=== PATIENT | female | born 1985 | race African-American/Black ===

== ENCOUNTER 2017-09-18 11:20 | Emergency (ER) | payer OTHER ==
[2017-09-18 11:31] VITALS: TEMP 98.2; BMI 28.0
--- NOTE | 2017-09-18 11:51 | PDOC ---
Attending Attestation - Resident Resident Name: Isabel Reddy - HPI HPI: 09/18/17 12:49 Pt presents to the ED complaining of a two day history of nausea, vomiting and r sided abdominal pain. Also complaining of profuse watery diarrhea. Denies fever or urinary complaints. No prior history of similar pain. - Physicial Exam PE: 09/18/17 12:51 Agree with resident exam. Resident is in no acute distress. Abdomen is mildly tender in the RUQ. No CVA tenderness. Abdomen is soft, flat and non distended. - Medical Decision Making 09/18/17 12:52 Pt presents to the ED complaining of nausea, vomiting and RUQ pain. Differential includes gallstones or cholecystitis, pancreatitis, gastroenteritis , gastritis, ectopic , renal stones. Will check labs and US, check test, give pain control and reassess.
--- NOTE | 2017-09-18 12:22 | PDOC ---
History of Present Illness - General Chief Complaint: Nausea/Vomiting Stated Complaint: NAUSEA/VOMITING Time Seen by Provider: 09/18/17 11:27 - History of Present Illness Initial Comments: 09/18/17 12:34 31 year old female with no PMH presents with 2 day h/o abdominal pain, diarrhea , and emesis. Diarrhea and emesis started yesterday morning around 5 a.m. Patient came into our ED for evaluation yesterday morning however she had an episode of loose stools prompting her to leave prior to registration. Estimates she is having 7-8 bowel movements daily. Pain started late yesterday afternoon and is cramping, intermittent, 10/10, with no identifiable triggering or relieving factors. Not tolerating PO intake- last meal 3 days previous. Last BM this morning prior to presentation. Patient currently on her menstrual cycle. Patient denies any fevers/chils, dysuria/hematuria. Patient denies chest pain, shortness of breath. Patient denies sick contacts or recent travel. Allergy: Latex Surgical: C/S Social: 4-5 cigarettes daily, 1-2 alcoholic drinks weekly, denies recreational drug use PMD: Dr. Aguilar Past History - Past Medical History Allergies/Adverse Reactions: Allergies Allergy/AdvReac Type Severity Reaction Status Date / Time latex Allergy Verified 09/18/17 11:31 COPD: No - Suicide/Smoking/Psychosocial Hx Smoking History: Never smoked Number of Cigarettes Smoked Daily: 5 Information on smoking cessation initiated: No Review of Systems - Review of Systems Constitutional: No: Chills, Fever Respiratory: No: Cough, Shortness of Breath Cardiac (ROS): No: Chest Pain, Lightheadedness, Palpitations, Syncope ABD/GI: Yes: Diarrhea, Nausea, Vomiting, Abdominal cramping. No: Constipated, Rectal Bleeding : No: Burning, Dysuria *Physical Exam - Vital Signs Last Vital Signs Temp Pulse Resp BP Pulse Ox 98.2 F 88 18 152/83 99 09/18/17 11:27 09/18/17 11:27 09/18/17 11:27 09/18/17 11:27 09/18/17 11:27 - Physical Exam General Appearance: Yes: Nourished, Appropriately Dressed Neck: positive: Trachea midline, Supple Respiratory/Chest: positive: Lungs Clear Cardiovascular: positive: S1, S2 Gastrointestinal/Abdominal: positive: Normal Bowel Sounds, Soft, Other ((+) Bill's sign, Epigastric and RUQ TPP). negative: Guarding, Rebound Musculoskeletal: negative: CVA Tenderness (R), CVA Tenderness (L) Integumentary: positive: Normal Color, Dry, Warm Neurologic: positive: Fully Oriented, Alert ED Treatment Course - LABORATORY CBC & Chemistry Diagram: 09/18/17 12:30 09/18/17 12:30 Medical Decision Making - Medical Decision Making 09/18/17 12:40 31 year old female with abdominal pain + vomiting, diarrhea. PE significant for (+) Bill's sign, epigastric TTP. Frontal diagnosis: cholecystitis, biliary colic, pancreatitis, nephrolithiasis, ectopic . Will obtain GB ultrasound, basic labs. IV fluids and pain control with morphine. Bedside U/S shows no cholelithiasis, normal sized CBD, normal sized kidneys w/o hydronephrosis. 09/18/17 14:38 GB U/S shows mildly dilated CBD. No cholelithiasis. LFT's normal. CBC unremarkable. Urine negative. UA pending. Will give Immodium, Reassess. UA shows 3+ blood c/w patient's current menstruation. Patient's pain resolved will discharge home with supportive care. I discussed the physical exam findings, ancillary test results and final diagnoses with the patient. I answered all of the patient's questions. The patient was satisfied with the care received and felt comfortable with the discharge plan and treatment plan. The patient will return to the Emergency Department with any new, persistent or worsening symptoms. 09/18/17 14:48 *DC/Admit/Observation/Transfer Diagnosis at time of Disposition: Vomiting, Diarrhea - Discharge Dispostion Disposition: HOME Condition at time of disposition: Good Decision to Admit order: No - Referrals - Patient Instructions Printed Discharge Instructions: DI for Abdominal Pain-Adult, DI for Vomiting - - Adult Additional Instructions: Drink plenty of fluids and advance your diet as tolerating starting with soft foods. Follow up with your primary care doctor in the next 24-48 hours. Please return to the Emergency Department for any new/worsening/concerning symptoms. - Post Discharge Activity Forms/Work/School Notes: Back to Work
[2017-09-18] MEDS ORDERED: morphine CARPU-JECT 4 MG/1 ML DISP.SYRIN IVPUSH ONE (12:24)
[2017-09-18] MEDS ORDERED: SODIUM CHLORIDE 0.9% 500 ML INFUS.BAG IV ONE (12:24)
[2017-09-18] MEDS ORDERED: morphine SULFATE 4 MG/ML VIAL ONE (12:26)
[2017-09-18 12:45] LABS: BASO % 0.5 % (0-2.0); EOS % 1.2 % (0-4.5); HEMATOCRIT 37.4 % (32.4-45.2); HEMOGLOBIN 12.6 GM/dL (10.7-15.3); LYMPH % 28.5 % (8-40); MCH 31.8 pg (25.7-33.7); MCHC 33.8 g/dl (32.0-36.0); MEAN CELL VOLUME 94.1 fl (80-96); MEAN PLT VOLUME 8.4 fl (7.5-11.1); MONO % 10.7 % (3.8-10.2); NEUT % 59.1 % (42.8-82.8); PLATELET COUNT 281 K/MM3 (134-434); RBC 3.97 M/mm3 (3.60-5.2); WHITE BLOOD COUNT 5.5 K/mm3 (4.0-10.0)
[2017-09-18 13:16] LABS: ALBUMIN 3.2 g/dl (3.4-5.0); ALK PHOS 68 U/L (45-117); ANION GAP 6 (8-16); BILIRUBIN,TOTAL 0.9 mg/dL (0.2-1.0); BLOOD UREA NITROGEN 7 mg/dL (7-18); CALCIUM 8.6 mg/dL (8.5-10.1); CHLORIDE 106 mmol/L (98-107); CO2 27 mmol/L (21-32); CREATININE 0.7 mg/dL (0.55-1.02); GLUCOSE,RANDOM 89 mg/dL (74-106); SGPT/ALT 27 U/L (12-78); SODIUM 139 mmol/L (136-145); TOT PROT 7.6 g/dl (6.4-8.2)
[2017-09-18 13:40] LABS: POTASSIUM 4.6 mmol/L (3.5-5.1); SGOT/AST 36 U/L (15-37)
[2017-09-18] MEDS ORDERED: LOPERAMIDE HCL 1 MG/5 ML UNIT DOSE CUP PO ONE (13:56)
[2017-09-18] MEDS ORDERED: LOPERAMIDE HCL 2 MG CAPSULE ONE (14:06)
[2017-09-18 14:08] LABS: LIPASE 35 U/L (73-393)
[2017-09-18 14:26] LABS: URINE APPEARANCE CLEAR; URINE BILIRUBIN NEGATIVE (<2.0 mg/dL); URINE COLOR YELLOW; URINE GLUCOSE (UA) NEGATIVE (NEGATIVE); URINE KETONE NEGATIVE (NEGATIVE); URINE LEUK ESTERASE NEGATIVE (NEGATIVE); URINE NITRITE NEGATIVE (NEGATIVE); URINE PROTEIN 2+ (NEGATIVE)
[2017-09-18 14:27] LABS: EPI CELLS FEW /HPF (FEW)
[2017-09-18 16:21] VITALS: BP 133/65; PULSE 64
== END 2017-09-18 15:32 | disposition home or self-care (01) ==
LOC: JER 11:20
PROC: 3E033NZ Introduction of Analgesics, Hypnotics, Sedatives into Peripheral Vein, Percutaneous Approach (ICD-10-PCS; principal; 2017-09-18)
PROC: 3E0337Z Introduction of Electrolytic and Water Balance Substance into Peripheral Vein, Percutaneous Approach (ICD-10-PCS; 2017-09-18)
DX: R11.10 Vomiting, unspecified (principal); R19.7 Diarrhea, unspecified
CPT/HCPCS: 36415; 76705-TC; 80053; 81003; 81015; 83690; 84703; 85025; 96374; 96375; 99282-25

== ENCOUNTER 2020-10-22 17:02 | Emergency (ER) | payer OTHER ==
[2020-10-22 18:06] VITALS: BP 136/77; PULSE 81; TEMP 97.5; BMI 38.4
[2020-10-22] MEDS ORDERED: MECLIZINE HCL 25 MG TABLET (FP) PO ONE (18:38)
[2020-10-22] MEDS ORDERED: SODIUM CHLORIDE 0.9% 500 ML INFUS.BAG IV ONE (18:38)
[2020-10-22] MEDS ORDERED: MECLIZINE HCL 25 MG TABLET (FP) ONE (18:55)
[2020-10-22 20:19] LABS: ANION GAP 7 MMOL/L (8-16); CALCIUM 8.5 mg/dL (8.5-10.1); CHLORIDE 108 mmol/L (98-107); CO2 24 mmol/L (21-32); SODIUM 138 mmol/L (136-145)
[2020-10-22] MEDS ORDERED: METOCLOPRAMIDE HCL INJECTION 10 MG/2 ML VIAL IVPUSH ONE (20:19)
[2020-10-22 20:20] LABS: BLOOD UREA NITROGEN 11.6 mg/dL (7-18); GLUCOSE,RANDOM 89 mg/dL (74-106)
[2020-10-22 20:21] LABS: BASO % 0.9 % (0-2.0); EOS % 3.7 % (0-4.5); HEMATOCRIT 36.1 % (32.4-45.2); HEMOGLOBIN 12.3 GM/dL (10.7-15.3); LYMPH % 35.2 % (8-40); MCH 31.8 pg (25.7-33.7); MCHC 34.2 g/dl (32.0-36.0); MEAN PLT VOLUME 8.3 fl (7.5-11.1); MONO % 8.3 % (3.8-10.2); NEUT % 51.9 % (42.8-82.8); PLATELET COUNT 287 10^3/uL (134-434); RBC 3.88 M/mm3 (3.60-5.2); RDW 16.4 % (11.6-15.6); WHITE BLOOD COUNT 6.4 K/mm3 (4.0-10.0)
[2020-10-22 20:23] LABS: CREATININE 0.9 mg/dL (0.55-1.3)
== END 2020-10-22 21:10 | disposition home or self-care (01) ==
LOC: JER 17:02
DX: R53.83 Other fatigue (principal); R51.9 Headache, unspecified
CPT/HCPCS: 36415; 71046-TC-FY; 80048; 84484; 84702; 85025; 93005; 93010; 99285-25; C9803; U0003; U0005

== ENCOUNTER 2021-09-29 09:42 | Emergency (ER) | payer OTHER ==
[2021-09-29 10:04] VITALS: BP 131/77; PULSE 76; TEMP 98.5; BMI 44.3
[2021-09-29] MEDS ORDERED: KETOROLAC TROMETHAMINE 30 MG/1 ML VIAL IM ONE (11:48)
[2021-09-29] MEDS ORDERED: LIDOCAINE 5% TOPICAL PATCH TP ONE (11:49)
[2021-09-29] MEDS ORDERED: KETOROLAC TROMETHAMINE 30 MG/1 ML VIAL ONE (11:59)
[2021-09-29] MEDS ORDERED: LIDOCAINE 5% TOPICAL PATCH ONE (11:59)
[2021-09-29 13:03] LABS: URINE APPEARANCE CLEAR; URINE BILIRUBIN NEGATIVE (NEGATIVE); URINE COLOR YELLOW; URINE GLUCOSE (UA) NEGATIVE (NEGATIVE); URINE KETONE NEGATIVE (NEGATIVE); URINE LEUK ESTERASE NEGATIVE (NEGATIVE); URINE NITRITE NEGATIVE (NEGATIVE); URINE PROTEIN NEGATIVE (NEGATIVE)
[2021-09-29] MEDS ORDERED: LIDOCAINE PATCH REMOVAL MC ONE (22:00)
== END 2021-09-29 14:06 | disposition home or self-care (01) ==
LOC: JER 09:42 → JERFT 09:42
PROC: 3E0233Z Introduction of Anti-inflammatory into Muscle, Percutaneous Approach (ICD-10-PCS; principal; 2021-09-29)
DX: M54.50 Low back pain, unspecified (principal)
CPT/HCPCS: 81003; 82962; 87086; 99284-25

== ENCOUNTER 2023-08-03 17:03 | Emergency (ER) | payer OTHER ==
[2023-08-03 17:57] VITALS: BP 131/73; PULSE 82; RESP 17; TEMP 100.4; BMI 39.5
[2023-08-03] MEDS ORDERED: ACETAMINOPHEN INJECTION 100 ML IVPB ONE (18:30)
[2023-08-03] MEDS ORDERED: METOCLOPRAMIDE HCL INJECTION 10 MG/2 ML VIAL ONE (18:30)
[2023-08-03] MEDS ORDERED: FAMOTIDINE 10 MG/ML VIAL IVPB ONE (18:30)
[2023-08-03 18:59] LABS: BASO % 0.2 % (0-2.0); EOS % 0.2 % (0-4.5); HEMATOCRIT 38.1 % (32.4-45.2); HEMOGLOBIN 13.2 GM/dL (10.7-15.3); LYMPH % 9.8 % (8-40); MCH 32.8 pg (25.7-33.7); MCHC 34.7 g/dl (32.0-36.0); MEAN CELL VOLUME 94.5 fl (80-96); MEAN PLT VOLUME 7.5 fl (7.5-11.1); MONO % 7.6 % (3.8-10.2); NEUT % 82.2 % (42.8-82.8); PLATELET COUNT 307 10^3/uL (134-434); RBC 4.03 M/mm3 (3.60-5.2); RDW 13.9 % (11.6-15.6); WHITE BLOOD COUNT 6.1 K/mm3 (4.0-10.0)
[2023-08-03] MEDS: ACETAMINOPHEN 1000 MG/100 ML BAG IVPB ONE (19:00)
[2023-08-03] MEDS: LACTATED RINGERS SOLUTION 1000 ML INFUS.BAG IV ONE (19:00)
[2023-08-03] MEDS: METOCLOPRAMIDE HCL INJECTION 10 MG/2 ML VIAL IVPB ONE (19:01)
[2023-08-03] MEDS: FAMOTIDINE 20 MG/50 ML IVPB 20 MG/50 ML MG IVPB ONE (19:12)
[2023-08-03 19:23] LABS: POTASSIUM 3.6 mmol/L (3.5-5.1)
[2023-08-03 19:25] LABS: CALCIUM 8.6 mg/dL (8.5-10.1)
[2023-08-03 19:26] LABS: ALBUMIN 3.4 g/dl (3.4-5.0); BLOOD UREA NITROGEN 11.7 mg/dL (7-18); MAGNESIUM 1.9 mg/dL (1.8-2.4)
[2023-08-03 19:29] LABS: CREATININE 0.8 mg/dL (0.55-1.3)
[2023-08-03 19:30] LABS: BILIRUBIN,TOTAL 0.8 mg/dL (0.2-1); TOT PROT 7.9 g/dl (6.4-8.2)
== END 2023-08-03 20:50 | disposition home or self-care (01) ==
LOC: JER 17:03
PROC: 3E033GC Introduction of Other Therapeutic Substance into Peripheral Vein, Percutaneous Approach (ICD-10-PCS; principal; 2023-08-03)
PROC: 3E033NZ Introduction of Analgesics, Hypnotics, Sedatives into Peripheral Vein, Percutaneous Approach (ICD-10-PCS; 2023-08-03)
PROC: 3E033GC Introduction of Other Therapeutic Substance into Peripheral Vein, Percutaneous Approach (ICD-10-PCS; 2023-08-03)
DX: K52.9 Noninfective gastroenteritis and colitis, unspecified (principal); R11.2 Nausea with vomiting, unspecified; R07.89 Other chest pain; R10.84 Generalized abdominal pain; R51.9 Headache, unspecified; Z20.822 Contact with and (suspected) exposure to COVID-19
CPT/HCPCS: 0241U-QW; 36415; 71045-TC-FY; 80053; 83690; 83735; 84484; 84703; 85025; 93005; 93010; 96365; 96375; 99285-25; J0131